=== PATIENT | male | born 1950 | race Two or more races ===

== ENCOUNTER 2017-02-20 12:16 | Emergency (ER) | payer MEDICARE, MEDICAID ==
[~2017-02-20] VITALS: Ht 162.6 cm; Wt 89.4 kg
[~2017-02-20 12:16] MED LIST: AMPICILLIN250 MG/5 M PO; BACLOFEN20 MG PO; DEPAKOTE500 MG PO; FERROUS SULFAT325 MG ORAL; HYDROCODON-ACE1 EA15 ORAL; IBUPROFEN200 MG PO; LAMICTAL100 MG ORAL; LAMOTRIGINE5 MG PO; LEVAQUIN500 MG ORAL; NORCO 5-325 TA1 EAC1 ORAL; UNOBMED
[2017-02-20] MEDS ORDERED: Tylenol #3 tab (300mg/30mg) ORAL ONE (13:00)
--- NOTE | 2017-02-20 13:23 | Emergency Room Report ---
History of Present Illness General Chief Complaint: Lower Extremity Injury Source: Patient, Medical Record Present Illness HPI 66 Yo Male Pt. presents to the ED c/o pain , swelling, tenderness to base of the right great toe x 3 days. pt. cannot recall about trauma. denies increased temperature to palpation. He has a history of epilepsy and neuropathy he does not ambulate on his own he utilizes a wheelchair. Denies numbness tingling or loss of sensation or gross motor movements of the extremities, incontinence of bowel or bladder. Denies CP, Palpitations, LOC, AMS, dizziness, Changes in Vision, Sensation, paresthesias, or a sudden severe headache. Allergies: Coded Allergies: NO KNOWN ALLERGIES (Unverified Allergy, Unknown, 09/02/15) Patient History Past Medical History: see triage record Past Surgical History: none Pertinent Family History: none Reviewed Nursing Documentation: PMH: Agreed, PSxH: Agreed Nursing Documentation-PMH Past Medical History: No History, Except For Hx Cardiac Problems: No Hx Diabetes: Yes Hx Cancer: No Hx Gastrointestinal Problems: No Hx Neurological Problems: Yes - seizures Hx Cerebrovascular Accident: Yes - 1990 Hx Transient Ischemic Attacks: No Hx Dementia: No Hx Alzheimer's Disease: No Hx Parkinson's Disease: No Hx Meningitis: No Hx Encephalitis: No Hx Seizures: Yes Hx Epilepsy: Yes Hx Multiple Sclerosis: No Hx Cerebral Palsy: No Hx Amyotrophic Lat Sclerosis: No Hx Guillian-[place] Syndrome: No 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 Hx Peripheral Neuropathy: Yes Hx Spinal Cord Injury: Yes - slipped disc 1991 Hx Head Trauma: No Hx Traumatic Brain Injury: No Hx Memory Loss: No Hx Concentration Difficulty: No Hx Speech Problem: No Hx Tremors: No Hx Vertigo: No Hx Dizziness: No Hx Syncope: No Hx Headaches: No Hx Aphasia: No Hx Dysphasia: No Hx Numbness: Yes Hx Weakness: Yes Hx Fatigue: No Hx Neurologic Surgery: No Hx Brain Shunt: No Review of Systems All Other Systems: negative except mentioned in HPI Physical Exam Vital Signs Date Time Temp Pulse Resp B/P Pulse Ox O2 Delivery O2 Flow Rate FiO2 02/20/17 11:50 98.4 86 24 104/64 100 Room Air Sp02 EP Interpretation: reviewed, normal General Appearance: no apparent distress, alert, GCS 15, non-toxic Head: normocephalic, atraumatic Eyes: bilateral eye PERRL, bilateral eye normal inspection ENT: hearing grossly normal, normal pharynx, no angioedema, normal voice Neck: full range of motion, supple/symm/no masses Respiratory: chest non-tender, lungs clear, normal breath sounds, speaking full sentences Cardiovascular #1: regular rate, rhythm, no edema Musculoskeletal: back normal, gait/station normal, normal range of motion, swelling - base of the right great toe., other - TTP, bruising and swelling to the base of the right great toe. Neurologic: alert, oriented x3, responsive, motor strength/tone normal, sensory intact, speech normal Psychiatric: judgement/insight normal, memory normal, mood/affect normal Skin: normal color, no rash, warm/dry, well hydrated, other - ecchymosis to the base of the right great toe., hematoma Medical Decision Making PA Attestation Dr. Gaona is my supervising Physician whom patient management has been discussed with. Diagnostic Impression: Primary Impression: Toe fracture, right Qualified Codes: S92.414A - Nondisplaced fracture of proximal phalanx of right great toe, initial encounter for closed fracture ER Course Pt. presents to the ED c/o pain , swelling, tenderness to base of the right great toe x 3 days. pt. cannot recall about trauma. Ddx considered but are not limited to Fracture, dislocation, contusion, Sprain/ Strain/Spasm. Vital signs: are WNL, pt. is afebrile H&PE are most consistent with possible fracture will do imaging. ORDERS: - X-ray Right foot 3 views - positive for fx of the proximal right great toe , no Dislocation, or significant soft tissue injury, per preliminary read in ED by Dr. Gaona signed 02/20/17 at 1318 ED INTERVENTIONS: -Tylenol #3 PO for pain - walking cast- shoe applied to right foot by electro tech, pt. remains NVI. DISCHARGE: At this time pt. is stable for d/c to home. Will provide printed patient care instructions, and any necessary prescriptions. Care plan and follow up instructions have been discussed with the patient prior to discharge. Last Vital Signs Date Time Temp Pulse Resp B/P Pulse Ox O2 Delivery O2 Flow Rate FiO2 02/20/17 11:50 98.4 86 24 104/64 100 Room Air Disposition: HOME, SELF-CARE Condition: Stable Scripts Hydrocodone Bit/Acetaminophen 5-325* (NORCO 5-325*) 1 Each Tablet 1 TAB ORAL Q6H Y for For Pain, #10 TAB 0 Refills Prov: Sunshine Denney 02/20/17 Referrals: NOT CHOSEN IPA/MD,REFERRING (PCP) Patient Instructions: Toe Fracture, [id number] Additional Instructions: Take medications as directed. Follow up with PCP in 3-5 days Return sooner to ED if new symptoms occur, or current symptoms become worse. - Please note that this Emergency Department Report was dictated using [employer] technology software, occasionally this can lead to erroneous entry secondary to interpretation by the dictation equipment. Sunshine Denney Feb 20, 2017 13:23
[2017-02-20 13:43] VITALS: BP 106/67
[2017-02-20] MEDS ORDERED: NORCO 5-325 TA1 EACH ORAL (14:52)
--- NOTE | 2017-02-22 11:06 | Diagnostic Imaging Report ---
Indications: Right foot pain Technique: 3 views right foot Findings: Comparison: None Oblique fracture medial margin first proximal phalangeal base, slightly displaced, extends the proximal articular surface. No additional acute fracture, dislocation, joint space widening, lytic destruction, periosteal reaction, surrounding soft tissue swelling/foreign body/gas, or other acute change identified. Focal contour deformity distal diaphysis fifth metatarsal. Bones diffusely demineralized. Scattered arterial mural calcifications. No other chronic changes are demonstrated. IMPRESSION: Acute fracture first proximal phalangeal base Old, healed fracture fifth metatarsal Osteopenia Arteriosclerosis
== END 2017-02-20 15:54 | disposition home or self-care (01) ==
LOC: EDBD 12:16 → EMR 12:25
DX: S92.411A Displaced fracture of proximal phalanx of right great toe, initial encounter for closed fracture (principal); X58.XXXA Exposure to other specified factors, initial encounter; Y92.009 Unspecified place in unspecified non-institutional (private) residence as the place of occurrence of the external cause; E11.9 Type 2 diabetes mellitus without complications; Z86.73 Personal history of transient ischemic attack (TIA), and cerebral infarction without residual deficits; G40.909 Epilepsy, unspecified, not intractable, without status epilepticus
CPT/HCPCS: 29540; 99283

== ENCOUNTER 2019-10-19 13:56 | Emergency (ER) | payer MEDICARE, MEDICAID ==
[~2019-10-19] VITALS: Ht 162.6 cm; Wt 89.4 kg
[~2019-10-19 13:56] MED LIST changes: +NORCO 5-325 TA1 EACH ORAL
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
[2019-10-19] MEDS ORDERED: IBUPROFEN600 MG ORAL (16:20)
--- NOTE | 2019-10-19 16:25 | NUR ---
ER DISCHARGE NOTE:clay wrap placed on right knee Patient is cleared to be discharged per ERMD, pt is aox4, on room air, with stable vital signs. pt was given dc and prescription instructions, pt was able to verbalize understanding, left via personal wheelchair pt took all belongings.
--- NOTE | 2019-10-19 16:26 | Diagnostic Imaging Report ---
Indication: Knee pain, status post fall Technique: 3 views of the right knee Comparison: None Findings: There is questionably an old healed fracture deformity of the fibular neck. Surgical hardware is seen in the distal femur, with evidence of a fracture deformity on the upper edge of the imaging volume. Bones are osteoporotic. No definite acute fractures. No dislocations. No suprapatellar effusion. There is narrowing of the lateral joint compartment Impression: No acute bony trauma Postsurgical and posterior matter changes, as described Lateral compartmental degenerative change Osteoporosis
[2019-10-19 16:29] VITALS: BP 125/84
== END 2019-10-19 16:25 | disposition home or self-care (01) ==
LOC: EMR 14:30
DX: S80.01XA Contusion of right knee, initial encounter (principal); E11.8 Type 2 diabetes mellitus with unspecified complications; W05.0XXA Fall from non-moving wheelchair, initial encounter; G40.909 Epilepsy, unspecified, not intractable, without status epilepticus; G83.9 Paralytic syndrome, unspecified; Y93.89 Activity, other specified; Y92.9 Unspecified place or not applicable; Z86.73 Personal history of transient ischemic attack (TIA), and cerebral infarction without residual deficits
CPT/HCPCS: 99283